=== PATIENT | female | born 1935 | race Hispanic/Latino ===

== ENCOUNTER 2021-01-27 00:26 | Emergency (ER) | payer MEDICARE ==
[~2021-01-27] VITALS: Ht 162.6 cm; Wt 89.8 kg
[~2021-01-27 00:26] MED LIST: ALEN70TA80 PO; CALC-1219 PO; LISI1TAB32 PO; METO50TA18 PO; ROSU20TA23 PO; UBID1CAP2 PO; VITA1TAB39 PO
[2021-01-27 00:37] VITALS: BP 145/69
[2021-01-27 00:55] LABS: BASOPHILS % (AUTO) 1.2 % (0.0-5.0); EOSINOPHILS % (AUTO) 2.7 % (0.0-8.0); HEMATOCRIT 40.5 % (36-48); LYMPHOCYTES % (AUTO) 50.5 % (21.0-51.0); MEAN CORPUSCULAR HEMOGLOBIN 31.3 pg (27.0-33.0); MEAN CORPUSCULAR HGB CONC 32.3 g/dL (32.0-36.0); MEAN CORPUSCULAR VOLUME 96.9 fL (79-99); MONOCYTES % (AUTO) 9.6 % (3.0-13.0); NEUTROPHILS % (AUTO) 35.5 % (40.0-77.0); PLATELET COUNT (AUTO) 212 K/uL (130-400); RED BLOOD CELL COUNT(AUTO) 4.18 MIL/uL (4.00-5.50); RED CELL DISTRIBUTION WIDTH 13.7 % (11.0-15.5); WHITE BLOOD COUNT (AUTO) 9.9 K/uL (4.8-10.8)
[2021-01-27 01:00] LABS: CREATININE 1.8 mg/dL (0.5-1.5); POTASSIUM 4.5 mmol/L (3.5-5.1)
[2021-01-27 01:03] LABS: INR 0.97 (0.85-1.15); PROTHROMBIN TIME 10.6 SEC (9.6-11.6)
[2021-01-27 01:04] LABS: PARTIAL THROMBOPLASTIN TIME 23.7 SEC (26.3-35.5)
[2021-01-27 01:05] LABS: ALBUMIN 3.6 g/dL (3.5-5.0); BILIRUBIN,TOTAL 0.3 mg/dL (0.2-1.0); TOTAL PROTEIN, SERUM 6.7 g/dL (6.0-8.3)
[2021-01-27 01:10] LABS: B-TYPE NATRIURETIC PEPTIDE 46 pg/mL (0-100)
[2021-01-27 01:48] VITALS: BP 123/55
[2021-01-27] MEDS ORDERED: PANTOPRAZOLE 40 MG/VIAL IV SCH (04:30)
[2021-01-27] MEDS ORDERED: MAG/ALUM/SIMETH 30 ML UDCUP PO ONE (04:30)
[2021-01-27] MEDS ORDERED: PANT40TA PO (06:05)
[2021-01-27] MEDS ORDERED: MAG-77 PO (06:05)
[2021-01-27 06:15] VITALS: BP 109/55
== END 2021-01-27 06:55 | disposition home or self-care (01) ==
LOC: EDH 00:26
DX: K21.00 Gastro-esophageal reflux disease with esophagitis, without bleeding (principal); R07.89 Other chest pain; F41.9 Anxiety disorder, unspecified; E78.00 Pure hypercholesterolemia, unspecified; I10 Essential (primary) hypertension; Z88.5 Allergy status to narcotic agent; Z79.899 Other long term (current) drug therapy; Z98.890 Other specified postprocedural states
CPT/HCPCS: 36415; 71045; 80053; 83880; 84484; 85025; 85610; 85730; 93005; 96374; 99285; C9113

== ENCOUNTER 2022-04-08 08:46 | Observation (INO) | payer MEDICARE ==
[2022-04-06 11:46] LABS: EOSINOPHILS % (AUTO) 2.1 % (0.0-8.0); HEMATOCRIT 43.2 % (36-48); LYMPHOCYTES % (AUTO) 52.7 % (21.0-51.0); MEAN CORPUSCULAR HEMOGLOBIN 29.4 pg (27.0-33.0); MEAN CORPUSCULAR HGB CONC 31.5 g/dL (32.0-36.0); MEAN CORPUSCULAR VOLUME 93.5 fL (79-99); NEUTROPHILS % (AUTO) 37.9 % (40.0-77.0); PLATELET COUNT (AUTO) 238 K/uL (130-400); RED BLOOD CELL COUNT(AUTO) 4.62 MIL/uL (4.00-5.50); RED CELL DISTRIBUTION WIDTH 14.2 % (11.0-15.5); WHITE BLOOD COUNT (AUTO) 9.9 K/uL (4.8-10.8)
[2022-04-06 11:51] LABS: ALBUMIN 3.6 g/dL (3.5-5.0); CARBON DIOXIDE 28 mmol/L (21-32); CHLORIDE 108 mmol/L (101-111); CREATININE 1.5 mg/dL (0.5-1.5); CRP QUANTITATIVE < 2.00 mg/L (0.00-9.0); GLOMERULAR FILTR. RATE CALC 35 mL/min (>60); GLUCOSE,RANDOM 105 mg/dL (70-105); POTASSIUM 4.2 mmol/L (3.5-5.1); SODIUM SERUM 143 mmol/L (136-145); UREA NITROGEN, BLOOD 34 mg/dL (7-18)
[2022-04-06 11:58] LABS: INR 0.93 (0.85-1.15); PROTHROMBIN TIME 10.1 SEC (9.6-11.6)
[2022-04-06 11:59] LABS: PARTIAL THROMBOPLASTIN TIME 24.8 SEC (26.3-35.5)
[2022-04-07 15:02] VITALS: BP 143/63
[~2022-04-08] VITALS: Ht 162.6 cm; Wt 81.0 kg
[2022-04-08] VITALS (27 sets, daily range): BP systolic 110–156; BP diastolic 56–79
[2022-04-08] MEDS: CEFAZOLIN SODIUM 1 GM VIAL IVP ONE ×2 (08:00→12:23)
[~2022-04-08 08:46] MED LIST changes: +AEC81 PO; -ALEN70TA80 PO; -CALC-1219 PO; +DAPA10TA PO; +FOLI0.8T22 PO; -LISI1TAB32 PO; +LISI1TAB51 PO; -METO50TA18 PO; +PANT40TA54 PO; -ROSU20TA23 PO; +ROSU20TA31 PO; -UBID1CAP2 PO; -VITA1TAB39 PO
[2022-04-08] MEDS ORDERED: 0.9%NACL 1000ML 1,000 ML IV ONE (09:18)
[2022-04-08] MEDS ORDERED: ROPIVACAINE 0.5% 5MG/ML 30ML IJ ONE ×2 (09:49→10:25)
[2022-04-08] MEDS ORDERED: TRANEXAMIC ACID 1000MG/10ML ONE ×2 (09:49)
[2022-04-08] MEDS ORDERED: KETOROLAC 30MG VIAL (30MG/ML) ONE (09:50)
[2022-04-08] MEDS ORDERED: SUCCINYLCHOLINE 200MG/10ML SYR ONE (12:17)
[2022-04-08] MEDS ORDERED: LIDOCAINE PF 100MG/5ML (2%) SYRINGE 5ML ONE (12:17)
[2022-04-08] MEDS ORDERED: MIDAZOLAM HCL 1 MG/ML 2ML VIAL ONE (12:18)
[2022-04-08] MEDS ORDERED: ROCURONIUM 10MG/1ML SYR 10 MG/ML ML ONE (12:18)
[2022-04-08] MEDS ORDERED: DEXAMETHASONE SOD PHOSPHATE 10MG/ML 1ML VIAL ONE (12:18)
[2022-04-08] MEDS ORDERED: PROPOFOL 10 MG/ML 20ML VIAL IV ONE (12:18)
[2022-04-08] MEDS ORDERED: ONDANSETRON 4MG INJ ONE (12:18)
[2022-04-08] MEDS ORDERED: GLYCOPYRROLATE 1 MG/5 ML SYRINGE ONE (12:18)
[2022-04-08] MEDS ORDERED: NEOSTIGMINE 5MG/5ML SYR IV ONE (12:18)
[2022-04-08] MEDS ORDERED: FENTANYL CITRATE PF 50 MCG/1 ML 2ML VIAL ONE (12:19)
[2022-04-08] MEDS ORDERED: EPHEDRINE SULFATE 50 MG/ML AMPULE ONE (12:42)
[2022-04-08] MEDS ORDERED: MEPERIDINE-PF 25 MG/ML SYG ONE ×2 (14:29→14:58)
[2022-04-08] MEDS ORDERED: POTASSIUM CHLORIDE 20MEQ/100ML 100 ML IV PRN (14:30)
[2022-04-08] MEDS ORDERED: POTASSIUM CHLORIDE 10% ELIXIR 20 MEQ/15 ML UDCUP PO PRN (14:30)
[2022-04-08] MEDS ORDERED: DiphenhydrAMINE HCL 50 MG/ML VIAL IVP PRN (14:30)
[2022-04-08] MEDS ORDERED: ONDANSETRON 4MG INJ IVP PRN (14:30)
[2022-04-08] MEDS ORDERED: FERROUS FUMARATE 324 MG TABLET PO PRN (14:30)
[2022-04-08] MEDS ORDERED: 0.9%NACL 1000ML 1,000 ML IV SCH (14:30)
[2022-04-08] MEDS ORDERED: LIDOCAINE HCL-MPF 1% 2ML VIAL IV PRN (14:30)
[2022-04-08] MEDS ORDERED: KCL 20 MEQ ERTAB PO PRN (14:30)
[2022-04-08] MEDS: DOCUSATE SODIUM 100 MG CAP PO SCH (14:30)
[2022-04-08] MEDS ORDERED: HYDROCODONE/ACETAMINOPHEN 5/325 MG TAB PO PRN ×2 (14:30)
[2022-04-08] MEDS: KETOROLAC 15MG/ML VIAL (15MG/ML) IV SCH ×2 (14:30→16:47)
[2022-04-08] MEDS ORDERED: GABAPENTIN 100 MG CAPSULE ONE (19:36)
[2022-04-08] MEDS: CEFAZOLIN SODIUM 1 GM VIAL IVP SCH (20:40)
[2022-04-08] MEDS: CYCLOBENZAPRINE HCL 10 MG TABLET PO PRN (20:40)
[2022-04-08] MEDS: GABAPENTIN 100 MG CAPSULE PO SCH (20:40)
[2022-04-08] MEDS: TRAMADOL HCL 50 MG TABLET PO PRN (20:48)
[2022-04-09] MEDS: CEFAZOLIN SODIUM 1 GM VIAL IVP SCH (02:12)
[2022-04-09] MEDS: KETOROLAC 15MG/ML VIAL (15MG/ML) IV SCH ×2 (02:13→09:44)
[2022-04-09 04:18] LABS: HEMATOCRIT 35.8 % (36-48); MEAN CORPUSCULAR HEMOGLOBIN 29.6 pg (27.0-33.0); MEAN CORPUSCULAR HGB CONC 32.1 g/dL (32.0-36.0); MEAN CORPUSCULAR VOLUME 92.3 fL (79-99); RED BLOOD CELL COUNT(AUTO) 3.88 MIL/uL (4.00-5.50); RED CELL DISTRIBUTION WIDTH 13.8 % (11.0-15.5); WHITE BLOOD COUNT (AUTO) 9.5 K/uL (4.8-10.8)
[2022-04-09 04:20] VITALS: BP 111/63
[2022-04-09 04:25] LABS: CREATININE 1.9 mg/dL (0.5-1.5); POTASSIUM 4.6 mmol/L (3.5-5.1)
[2022-04-09] MEDS: CALCIUM CARB 500MG PO PRN (05:30)
[2022-04-09] MEDS: TRAMADOL HCL 50 MG TABLET PO PRN ×2 (05:30→13:13)
[2022-04-09 08:00] VITALS: BP 106/60
[2022-04-09] MEDS: LISINOPRIL 20 MG TABLET PO SCH (09:00)
[2022-04-09] MEDS: PANTOPRAZOLE 40 MG TAB DR PO SCH (09:00)
[2022-04-09] MEDS: HYDROCHLOROTHIAZIDE 25 MG TABLET PO SCH (09:00)
[2022-04-09] MEDS: Vitamin B Complex/Vit C/Folic Acid PO SCH (09:00)
[2022-04-09] MEDS: ATORVASTATIN 40 MG TABLET PO SCH (09:00)
[2022-04-09] MEDS: POLYETHYLENE GLYCOL 3350 17 GM POWD.PACK PO SCH (09:00)
[2022-04-09] MEDS: **HM**(Dapagliflozin Propanediol (Farxiga) 10 MG PO SCH (09:00)
[2022-04-09] MEDS: ASPIRIN 325MG TAB PO SCH (09:41)
[2022-04-09] MEDS: GABAPENTIN 100 MG CAPSULE PO SCH ×3 (09:42→20:04)
[2022-04-09 11:30] VITALS: BP 93/44
[2022-04-09] MEDS: DOCUSATE SODIUM 100 MG CAP PO SCH (14:30)
[2022-04-09 16:30] VITALS: BP 88/43
[2022-04-09 19:54] VITALS: BP 85/45
[2022-04-09] MEDS ORDERED: 0.9% NACL 500ML IV.SOLN 500 ML IV ONE (20:02)
[2022-04-09] MEDS ORDERED: 0.9% NACL 500ML IV.SOLN 500 ML IV SCH (20:30)
[2022-04-09] MEDS: CYCLOBENZAPRINE HCL 10 MG TABLET PO PRN (20:37)
[2022-04-09 23:24] VITALS: BP 105/56
[2022-04-10] MEDS: TRAMADOL HCL 50 MG TABLET PO PRN ×2 (03:47→12:27)
[2022-04-10 04:12] VITALS: BP 144/70
[2022-04-10] MEDS: CALCIUM CARB 500MG PO PRN (06:24)
[2022-04-10 08:00] VITALS: BP 96/53
[2022-04-10] MEDS: HYDROCHLOROTHIAZIDE 25 MG TABLET PO SCH (09:00)
[2022-04-10] MEDS: LISINOPRIL 20 MG TABLET PO SCH (09:00)
[2022-04-10] MEDS: **HM**(Dapagliflozin Propanediol (Farxiga) 10 MG PO SCH (09:00)
[2022-04-10] MEDS: POLYETHYLENE GLYCOL 3350 17 GM POWD.PACK PO SCH (11:01)
[2022-04-10] MEDS: ATORVASTATIN 40 MG TABLET PO SCH (11:01)
[2022-04-10] MEDS: ASPIRIN 325MG TAB PO SCH (11:02)
[2022-04-10] MEDS: Vitamin B Complex/Vit C/Folic Acid PO SCH (11:02)
[2022-04-10] MEDS: PANTOPRAZOLE 40 MG TAB DR PO SCH (11:03)
[2022-04-10 11:57] VITALS: BP 107/60
[2022-04-10] MEDS: DOCUSATE SODIUM 100 MG CAP PO SCH (14:30)
[2022-04-10 16:00] VITALS: BP 124/66
[2022-04-10 16:57] LABS: BASOPHILS % (AUTO) 0.7 % (0.0-5.0); EOSINOPHILS % (AUTO) 0.7 % (0.0-8.0); HEMATOCRIT 38.1 % (36-48); LYMPHOCYTES % (AUTO) 38.5 % (21.0-51.0); MEAN CORPUSCULAR HEMOGLOBIN 29.4 pg (27.0-33.0); MEAN CORPUSCULAR VOLUME 91.8 fL (79-99); MONOCYTES % (AUTO) 9.5 % (3.0-13.0); NEUTROPHILS % (AUTO) 49.9 % (40.0-77.0); PLATELET COUNT (AUTO) 226 K/uL (130-400); RED BLOOD CELL COUNT(AUTO) 4.15 MIL/uL (4.00-5.50); RED CELL DISTRIBUTION WIDTH 14.2 % (11.0-15.5); WHITE BLOOD COUNT (AUTO) 13.4 K/uL (4.8-10.8)
[2022-04-10 17:10] LABS: CREATININE 1.7 mg/dL (0.5-1.5); POTASSIUM 4.6 mmol/L (3.5-5.1)
[2022-04-10] MEDS ORDERED: BISACODYL 10 MG SUPP.RECT RC ONE (17:20)
[2022-04-10] MEDS ORDERED: ACETAMINOPHEN 325 MG TAB PO ONE (18:00)
[2022-04-10 20:04] VITALS: BP 146/53
[2022-04-10] MEDS: METOPROLOL TARTRATE 25 MG TAB PO SCH (21:48)
[2022-04-11] VITALS (7 sets, daily range): BP systolic 84–141; BP diastolic 48–74
[2022-04-11] MEDS: TRAMADOL HCL 50 MG TABLET PO PRN ×2 (05:10→15:16)
[2022-04-11] MEDS: DOCUSATE SODIUM 100 MG CAP PO SCH (07:44)
[2022-04-11] MEDS: **HM**(Dapagliflozin Propanediol (Farxiga) 10 MG PO SCH ×2 (09:00→09:18)
[2022-04-11] MEDS: Vitamin B Complex/Vit C/Folic Acid PO SCH ×2 (09:05→09:18)
[2022-04-11] MEDS: ASPIRIN 325MG TAB PO SCH ×2 (09:06→09:18)
[2022-04-11] MEDS: METOPROLOL TARTRATE 25 MG TAB PO SCH ×3 (09:06→09:19)
[2022-04-11] MEDS: LISINOPRIL 20 MG TABLET PO SCH ×2 (09:06→09:18)
[2022-04-11] MEDS: HYDROCHLOROTHIAZIDE 25 MG TABLET PO SCH ×2 (09:06→09:18)
[2022-04-11] MEDS: POLYETHYLENE GLYCOL 3350 17 GM POWD.PACK PO SCH ×2 (09:07→09:18)
[2022-04-11] MEDS: PANTOPRAZOLE 40 MG TAB DR PO SCH ×2 (09:07→09:19)
[2022-04-11] MEDS: ATORVASTATIN 40 MG TABLET PO SCH ×2 (09:07→09:18)
[2022-04-11] MEDS: ACETAMINOPHEN 325 MG TAB PO PRN (09:17)
[2022-04-11 10:23] LABS: HEMATOCRIT 34.4 % (36-48); MEAN CORPUSCULAR HEMOGLOBIN 29.3 pg (27.0-33.0); MEAN CORPUSCULAR VOLUME 91.7 fL (79-99); PLATELET COUNT (AUTO) 185 K/uL (130-400); RED BLOOD CELL COUNT(AUTO) 3.75 MIL/uL (4.00-5.50); RED CELL DISTRIBUTION WIDTH 14.4 % (11.0-15.5); WHITE BLOOD COUNT (AUTO) 9.3 K/uL (4.8-10.8)
[2022-04-11] MEDS: MAGNESIUM HYDROXIDE 30 ML/UDCUP PO SCH (10:43)
[2022-04-11 11:34] LABS: EOSINOPHILS % (MANUAL) 1 % (1-6); LYMPHOCYTES % (MANUAL) 21 % (22-44); MAN.DIFF COMMENT-IMPRESSION MANUAL DIFFERENTIAL; MONOCYTES % (MANUAL) 4 % (2-9); SEGMENTED NEUTROPHILS % 74 % (40-70)
[2022-04-11 11:35] LABS: PLATELET MORPHOLOGY COMMENT ADEQUATE
[2022-04-11] MEDS ORDERED: BISACODYL 10 MG SUPP.RECT RC PRN (14:30)
[2022-04-12] VITALS (7 sets, daily range): BP systolic 96–123; BP diastolic 45–60
[2022-04-12] MEDS: TRAMADOL HCL 50 MG TABLET PO PRN ×2 (03:53→13:24)
[2022-04-12 04:43] LABS: BASOPHILS % (AUTO) 0.6 % (0.0-5.0); EOSINOPHILS % (AUTO) 2.1 % (0.0-8.0); HEMATOCRIT 33.6 % (36-48); MEAN CORPUSCULAR HGB CONC 31.5 g/dL (32.0-36.0); MEAN CORPUSCULAR VOLUME 92.1 fL (79-99); MONOCYTES % (AUTO) 9.5 % (3.0-13.0); NEUTROPHILS % (AUTO) 46.8 % (40.0-77.0); PLATELET COUNT (AUTO) 204 K/uL (130-400); RED BLOOD CELL COUNT(AUTO) 3.65 MIL/uL (4.00-5.50); RED CELL DISTRIBUTION WIDTH 14.2 % (11.0-15.5)
[2022-04-12] MEDS: DOCUSATE SODIUM 100 MG CAP PO SCH (08:46)
[2022-04-12] MEDS: MAGNESIUM HYDROXIDE 30 ML/UDCUP PO SCH (08:46)
[2022-04-12] MEDS: ATORVASTATIN 40 MG TABLET PO SCH (08:47)
[2022-04-12] MEDS: Vitamin B Complex/Vit C/Folic Acid PO SCH (08:47)
[2022-04-12] MEDS: ASPIRIN 325MG TAB PO SCH (08:48)
[2022-04-12] MEDS: POLYETHYLENE GLYCOL 3350 17 GM POWD.PACK PO SCH (08:48)
[2022-04-12] MEDS: ACETAMINOPHEN 325 MG TAB PO PRN (08:50)
[2022-04-12] MEDS: **HM**(Dapagliflozin Propanediol (Farxiga) 10 MG PO SCH (08:54)
[2022-04-12] MEDS ORDERED: METO25TA6 PO (12:30)
== END 2022-04-12 17:20 ==
LOC: DAH 08:46 → INTOOBSV 08:47 → DAH 08:47 → DAHIP 08:47 → DAH 10:10 → 4DH 15:57
PROVIDERS: ADMIT Student in an Organized Health Care Education/Training Program; ATTEND Student in an Organized Health Care Education/Training Program
DX: M17.12 Unilateral primary osteoarthritis, left knee (principal); Z20.822 Contact with and (suspected) exposure to COVID-19; D62 Acute posthemorrhagic anemia; M21.062 Valgus deformity, not elsewhere classified, left knee; M25.562 Pain in left knee; G89.29 Other chronic pain; I12.9 Hypertensive chronic kidney disease with stage 1 through stage 4 chronic kidney disease, or unspecified chronic kidney disease; N18.9 Chronic kidney disease, unspecified; I25.10 Atherosclerotic heart disease of native coronary artery without angina pectoris; E78.5 Hyperlipidemia, unspecified; F41.9 Anxiety disorder, unspecified; K21.00 Gastro-esophageal reflux disease with esophagitis, without bleeding; K59.00 Constipation, unspecified; M81.0 Age-related osteoporosis without current pathological fracture; Z79.899 Other long term (current) drug therapy; Z98.890 Other specified postprocedural states
CPT/HCPCS: 82040; 80048 ×3; 85025 ×4; 85610; 85730; 84134; 86140; 87426; 36415 ×5; 87641; 27447; 96374; 96375; 76942; 64447; 73560; 96376; 85027; 97161; 97039 ×8; 97116 ×8; 97530 ×3; 93005; 83735; G0378 ×94; A4663; A4215 ×2; A4649 ×3; J3010; J0690 ×3; J3490 ×4; J0330; J1100; J2710; J7030; J2001; J2250; J2704; J2405 ×2; J1885 ×4; J2175 ×2; J2795 ×2; G0168; A4930; C1776; A6255; A5120; A4223; A4222; A4221; J7040